=== PATIENT | male | born 1945 | race Two or more races ===

== ENCOUNTER 2020-07-27 18:53 | Emergency (ER) | payer BC, OTHER ==
[~2020-07-27] VITALS: Ht 182.9 cm; Wt 63.5 kg
[2020-07-27 20:58] LABS: Basophils # (auto) 0 10 ^3/uL (0-0.2); Basophils % (auto) 0.3 % (0.0-2.0); Eosinophils # (auto) 0.2 10 ^3/uL (0-0.8); Eosinophils % (auto) 2.3 % (0.0-7.0); Hematocrit 36.8 % (41.0-53.0); Hemoglobin 12.7 g/dL (13.5-17.5); Lymphocytes % (auto) 27.8 % (10.0-50.0); Mean Corpuscular Hemoglobin 31.5 pg (28.0-32.0); Mean Corpuscular Hgb Conc. 34.6 g/dL (32.0-36.0); Mean Corpuscular Volume 91.2 fL (80.0-100.0); Monocytes # (auto) 0.6 10 ^3/uL (0-1.3); Monocytes % (auto) 8.7 % (0.0-12.0); Neutrophils # (auto) 4.4 10 ^3/uL (1.6-8.6); Neutrophils % (auto) 60.9 % (37.0-80.0); Nucleated Red Blood Cells % 0.1 %; Platelet Count (auto) 199 10^3/uL (140-450); Red Blood Cells 4.03 10^6/uL (4.5-5.90); Red Cell Distribution Width 12.8 % (11.8-14.3); White Blood Cell 7.3 10^3/uL (4.4-10.8)
[2020-07-27 21:05] LABS: Urine Bacteria NONE SEEN /hpf (None Seen); Urine Blood 2+ /uL (Negative); Urine Specific Gravity 1.005 (1.001-1.035); Urine WBC <1 /hpf (0 - 3)
[2020-07-27 21:11] LABS: Alanine Aminotransferase 15 U/L (16-61); Albumin 3.6 g/dL (3.4-5.0); Anion Gap 6 (5-15); Blood Urea Nitrogen 10 mg/dL (7-18); Calcium 8.4 mg/dL (8.5-10.1); Carbon Dioxide 28 mmol/L (21-32); Chloride 109 mmol/L (98-107); Glucose 120 mg/dL (74-106); Potassium 3.5 mmol/L (3.5-5.1); Sodium 143 mmol/L (136-145)
[2020-07-27 21:16] LABS: Alkaline Phosphatase 70 U/L (45-117); Aspartate Aminotransferase 16 U/L (15-37); BUN/Creatinine Ratio 12.3; Bilirubin, Total 0.5 mg/dL (0.2-1.0); GFR African American 119 mL/min; GFR Non-African American 99 mL/min
[2020-07-27 22:00] VITALS: BP 127/74
== END 2020-07-27 23:38 | disposition home or self-care (01) ==
LOC: ER 18:57
DX: N40.0 Benign prostatic hyperplasia without lower urinary tract symptoms (principal); K59.00 Constipation, unspecified; J44.9 Chronic obstructive pulmonary disease, unspecified
CPT/HCPCS: 36415; 74176; 80053; 81001; 84484; 85025; 93005

== ENCOUNTER 2022-06-16 14:51 | Emergency (ER) | payer OTHER ==
[~2022-06-16] VITALS: Ht 177.8 cm; Wt 90.9 kg
[2022-06-16 16:28] LABS: Basophils # (auto) 0 10 ^3/uL (0-0.2); Basophils % (auto) 0.1 % (0.0-2.0); Eosinophils # (auto) 0 10 ^3/uL (0-0.8); Hematocrit 40.9 % (41.0-53.0); Lymphocytes # (auto) 0.4 10 ^3/uL (0.4-5.4); Lymphocytes % (auto) 4.8 % (10.0-50.0); Mean Corpuscular Hemoglobin 30.4 pg (28.0-32.0); Mean Corpuscular Hgb Conc. 34.2 g/dL (32.0-36.0); Monocytes # (auto) 0.9 10 ^3/uL (0-1.3); Monocytes % (auto) 10.6 % (0.0-12.0); Neutrophils % (auto) 84.5 % (37.0-80.0); Nucleated Red Blood Cells % 0.1 %; Red Blood Cells 4.59 10^6/uL (4.5-5.90); Red Cell Distribution Width 13.2 % (11.8-14.3); White Blood Cell 8.2 10^3/uL (4.4-10.8)
[2022-06-16 16:44] LABS: Urine Bacteria MANY /hpf (None Seen); Urine Blood 1+ /uL (Negative); Urine Mucus MANY (None Seen); Urine Specific Gravity 1.016 (1.001-1.035); Urine WBC 27 /hpf (0 - 3)
[2022-06-16 16:47] LABS: BUN/Creatinine Ratio 34.2; Calcium 9.2 mg/dL (8.5-10.1); Potassium 3.8 mmol/L (3.5-5.1)
[2022-06-16 16:50] LABS: Bilirubin, Total 1.3 mg/dL (0.2-1.0); Total Protein 7.2 g/dL (6.4-8.2)
[2022-06-16] MEDS ORDERED: cefTRIAXone 1GM/50ML D5W 50 ML IV ONE (17:00)
[2022-06-16] MEDS ORDERED: IPRATROPIUM BROM 0.5 MG/2.5ML INH SOL NEB ONE (17:45)
[2022-06-16] MEDS ORDERED: ALBUTEROL SULF 2.5 MG/0.5ML(0.5%) NEB SOLN NEB ONE (17:45)
[2022-06-16] MEDS ORDERED: SODIUM CHLORIDE 0.9% 500 ML IV ONE (17:45)
[2022-06-16] MEDS ORDERED: ALBUTEROL MEDNEB 2.5 mg/3ml NEB ONE (18:06)
[2022-06-17] MEDS ORDERED: levoFLOXacin 500 MG TAB PO ONE (07:15)
[2022-06-17 08:58] VITALS: BP 123/74
== END 2022-06-17 09:32 | disposition home or self-care (01) ==
LOC: ER 14:51 → EDBD 14:51 → ER 06-17 05:43
DX: N39.0 Urinary tract infection, site not specified (principal); R33.9 Retention of urine, unspecified; K76.89 Other specified diseases of liver; J44.9 Chronic obstructive pulmonary disease, unspecified; E78.5 Hyperlipidemia, unspecified; Z20.822 Contact with and (suspected) exposure to COVID-19
CPT/HCPCS: 36415; 51798; 71045; 71250; 74176; 80053; 81001; 83605; 85025; 87086; 87426; 94640; 96361; 96365; 99285; J0696; J7030; J7040; J7644; 87088; 87186

== ENCOUNTER 2024-03-14 05:52 | Inpatient (IN) | payer OTHER ==
[~2024-03-14] VITALS: Ht 182.9 cm; Wt 64.7 kg
--- NOTE | 2024-03-14 06:11 | ECG ---
[facility] Test Date: 2024-03-14 Test Time: 05:57:37 Pat Name: EDMUND IRENE Department: ED Room: 0286T Gender: M Sld Inclusion Teacher: JEFFERY : 1945 Requested By: EMERGENCY EMERGENCY Order Number: [id number] Reading MD: Harvinder Lerner Measurements Intervals [place] Rate: 87 P: 91 HI: 165 QRS: 58 QRSD: 123 T: 85 QT: 402 QTc: 484 Interpretive Statements Sinus rhythm Ventricular premature complex Nonspecific intraventricular conduction delay Anteroseptal infarct, old Electronically Signed On 03-16-2024 11:52:49 PST by Harvinder Lerner Please click the below link to view image of tracing.
--- NOTE | 2024-03-14 07:41 | DVH ---
CLINICAL INFORMATION: 78 years old, Male; shortness of breath. TECHNIQUE: Single AP portable chest radiograph was obtained. COMPARISON: CHEST PORTABLE on DOS: 06/16/22, CXRP on DOS: 06/16/22 FINDINGS: Lungs: Hazy opacities in the upper lobes bilaterally, right greater than left, similar in appearance compared to the prior radiographs. Emphysematous changes also appear similar to the prior exam. Cardiac: Heart size is within normal limits. Pulmonary vasculature: Unremarkable. Mediastinum/mignon: Unremarkable. Bones: No acute osseous abnormality identified. Other: No other significant findings. IMPRESSION: Hazy opacities in the upper lobes bilaterally, right greater than left, appear similar to the prior r adiographs from 06/16/2022, may be due to chronic interstitial lung disease. Similar-appearing emphys ematous changes also noted. No focal consolidation.
--- NOTE | 2024-03-14 07:55 | ED.PDOC ---
History of Present Illness HPI Comments 78 y/o M, with a Hx of COPD, dementia, HLD, BPH, and Jean catheter placement, presents with c/o shortness of breath, today. Per EMS report, bystanders called for well-fare check after hearing patient yelling from inside his home, this morning. Patient was found with a SpO2 of 88% on room air, with his home O2 NC found beside him on the floor. En route, patient was placed on NRB, with SpO2 improving to 100%. Patient is also commented to be removed from hospice, recently, and is DNR. Patient has no other reported associated symptoms at this time. Further Hx cannot be obtained at this time, due to absence of family/fire behavior analyst historians and patient's demented baseline state. Chief Complaint: Shortness of Breath Time Seen by MD: 06:50 Reviewed Notes: Nurses Notes, Manager Of Employee Relations Notes, Medications, Allergies Allergies: Coded Allergies: No Known Drug Allergy (Verified Allergy, Unknown, 07/27/20) Information Source: Emergency Med Personnel Mode of Arrival: EMS Severity: Moderate Past Medical History PAST MEDICAL HISTORY: COPD, Dementia, High Lipids Past Medical History (Other): BPH Surgical History (Other): Jean catheter Family History Family History: Unknown Social History Smoker: Non-Smoker Alcohol: Denies ETOH Use Drugs: Denies Drug Use Lives In: Home Constitutional: denies: chills, diaphoresis, fatigue, fever, malaise, sweats, weakness, others EENTM: denies: blurred vision, double vision, ear bleeding, ear discharge, ear drainage, ear pain, ear ringing, eye pain, eye redness, hearing loss, mouth pain, mouth swelling, nasal discharge, nose bleeding, nose congestion, nose pain, photophobia, tearing, throat pain, throat swelling, voice changes, others Respiratory: reports: shortness of breath; denies: cough, hemoptysis, orthopnea, SOB at rest, SOB with excertion, stridor, wheezing, others Cardiovascular: denies: chest pain, dizzy spells, diaphoresis, Dyspnea on exertion, edema, irregular heart beat, left arm pain, lightheadedness, palpitations, PND, syncope, others Gastrointestinal: denies: abdomen distended, abdominal pain, blood streaked bowels, constipated, diarrhea, dysphagia, difficulty swallowing, hematemesis, melena, nausea, poor appetite, poor fluid intake, rectal bleeding, rectal pain, vomiting, others Genitourinary: denies: burning, dysuria, flank pain, frequency, hematuria, incontinence, penile discharge, penile sore, pain, testicle pain, testicle swelling, urgency, others Neurological: denies: dizziness, fainting, headache, left sided numbness, left sided weakness, numbness, paresthesia, pre-existing deficit, right sided num bness, right sided weakness, seizure, speech problems, tingling, tremors, weakness, others Musculoskeletal: denies: back pain, gout, joint pain, joint swelling, muscle pain, muscle stiffness, neck pain, others Integumetry: denies: bruises, change in color, change in hair/nails, dryness, laceration, lesions, lumps, rash, wounds, others Allergic/Immunocompromised: denies: Difficulty Healing, Frequent Infections, Hives, Itching, others Hematologic/Lymphatic: denies: anemia, blood clots, easy bleeding, easy bruising, swollen glands, others Endocrine: denies: excessive hunger, excessive sweating, excessive thirst, excessive urination, flushing, intolerance to cold, intolerance to heat, unexplained weight gain, unexplained weight loss, others Psychiatric: denies: anxiety, bipolar disorder, depression, hopeless, panic disorder, schizophrenia, sleepless, suicidal, others All Other Systems: Reviewed and Negative Physical Exam General Appearance: Moderate Distress HEENT: Normal ENT Inspection, Pharynx Normal, TMs Normal Neck: Full Range of Motion, Non-Tender, Normal, Normal Inspection Respiratory: Other (Coarse breath sounds) Cardiovascular: No Edema, No JVD, No Murmur, No Gallop, Normal Peripheral Pulses, Regular Rate/Rhythm Breast Exam: Deferred Gastrointestinal: No Organomegaly, Non Tender, No Pulsatile Mass, Normal Bowel Sounds, Soft Genitalia: Deferred Pelvic: Deferred Rectal: Deferred Extremities: No calf tenderness, Normal capillary refill, Normal inspection, Normal range of motion, Non-tender, No pedal edema Musculoskeletal : Apperance: Normal Neurologic: Disoriented Cerebellar Function: NOT DONE Reflexes: NOT DONE Skin: Dry, Normal Color, Warm Peripheral Pulses: 3+ Radial (R), 3+ Radial (L) Lymphatic: No Adenopathy Was a procedure done? Was a procedure done?: No EKG EKG : Pulse Rate (adult): 87 [place]: Normal Cardiac Rhythm: NSR, PVC's Block: None Hypertrophy: None ST: Old, Ant, Infarct Differential Dx Considerations may include: COPD exacerbation, bronchitis, PNA, Covid19, URI, viral syndrome X-Ray, Labs, Meds, VS Vital Signs Date Time Temp Pulse Resp B/P (MAP) Pulse Ox O2 Delivery O2 Flow Rate FiO2 03/14/24 07:55 87 03/14/24 06:20 Nasal Cannula* 2 28 03/14/24 06:20 98.0 74 12 144/64 (90) 98.0 03/14/24 06:04 98.7 82 24 131/83 (99) 100 03/14/24 05:57 87 Lab Test 03/14/24 07:13 Range/Units White Blood Count Pending Red Blood Count Pending Hemoglobin Pending Hematocrit Pending Mean Corpuscular Volume Pending Mean Corpuscular Hemoglobin Pending Mean Corpuscular Hemoglobin Concent Pending Red Cell Distribution Width Pending Platelet Count Pending Mean Platelet Volume Pending Neutrophils (%) (Auto) Pending Lymphocytes (%) (Auto) Pending Monocytes (%) (Auto) Pending Basophils (%) (Auto) Pending Neutrophils # (Auto) Pending Lymphocytes # (Auto) Pending Monocytes # (Auto) Pending Sodium Level Pending Potassium Level Pending Chloride Level Pending Carbon Dioxide Level Pending Anion Gap Pending Blood Urea Nitrogen Pending Creatinine Pending Glomerular Filtration Rate Calc Pending BUN/Creatinine Ratio Pending Serum Glucose Pending Calcium Level Pending History of dementia. Possibly baseline. Saturation was low in the field. Placed on oxygen. Reviewed his previous visit. Waiting for family. Better after placed on oxygen Continue cardiac monitoring. Time of 1ST Reevaluation: 07:20 Reevaluation 1ST: Unchanged Patient Education/Counseling: Other (patient has dementia ) Family Education/Counseling: No Family Present Departure 1 Departure Time of Disposition: 08:10 Impression: Primary Impression: Acute respiratory failure Qualified Codes: J96.01 - Acute respiratory failure with hypoxia Additional Impression: Metabolic encephalopathy Disposition: ADMITTED INPATIENT Admit to: Med Surg Condition: Guarded Critical Care Note Critical Care Time?: Yes (45 min-critical care time only) Stability Stability form required: No Heart Score Heart Score: Heart Score Response (Comments) Value History N/A 0 EKG N/A 0 Age N/A 0 Risk Factors N/A 0 Troponin N/A 0 Total 0 I personally scribed for AMANDA EGAN MD ([email or web address]) on 03/14/24 at 07:55. Electronically submitted by Andrea Barnhart ([email or web address]). AMANDA EGAN MD Mar 14, 2024 07:55
[2024-03-14 07:57] LABS: Basophils # (auto) 0 10 ^3/uL (0-0.2); Basophils % (auto) 0.4 % (0.0-2.0); Eosinophils # (auto) 0.1 10 ^3/uL (0-0.8); Eosinophils % (auto) 1.2 % (0.0-7.0); Hematocrit 35.8 % (41.0-53.0); Hemoglobin 11.9 g/dL (13.5-17.5); Lymphocytes % (auto) 18.2 % (10.0-50.0); Mean Corpuscular Hemoglobin 30.7 pg (28.0-32.0); Mean Corpuscular Hgb Conc. 33.3 g/dL (32.0-36.0); Mean Corpuscular Volume 92.4 fL (80.0-100.0); Monocytes # (auto) 0.5 10 ^3/uL (0-1.3); Monocytes % (auto) 9.7 % (0.0-12.0); Neutrophils # (auto) 3.9 10 ^3/uL (1.6-8.6); Neutrophils % (auto) 70.5 % (37.0-80.0); Nucleated Red Blood Cells % 0.1 %; Platelet Count (auto) 150 10^3/uL (140-450); Red Blood Cells 3.88 10^6/uL (4.5-5.90); Red Cell Distribution Width 13.5 % (11.8-14.3); White Blood Cell 5.6 10^3/uL (4.4-10.8)
[2024-03-14 08:00] VITALS: PULSE 76; RESP 23; O2SAT 99
[2024-03-14 08:11] LABS: Chloride 108 mmol/L (98-107); Potassium 3.8 mmol/L (3.5-5.1); Sodium 142 mmol/L (136-145)
[2024-03-14 08:13] LABS: Anion Gap 5 (5-15); Carbon Dioxide 29 mmol/L (20-31)
[2024-03-14 08:14] LABS: Calcium 9.1 mg/dL (8.7-10.4)
[2024-03-14 08:19] LABS: Blood Urea Nitrogen 15 mg/dL (9-23); Glucose 93 mg/dL (74-106)
[2024-03-14] MEDS ORDERED: DOCUSATE SOD 100 MG CAP PO PRN (09:45)
[2024-03-14] MEDS ORDERED: ONDANSETRON HCL 4 MG/2 ML VIAL IV PRN (09:45)
[2024-03-14] MEDS ORDERED: NITROGLYCERIN 0.4 MG SL TAB SL PRN (10:30)
--- NOTE | 2024-03-14 10:33 | DVHHP2 ---
History of Present Illness Reason for Visit: Acute respiratory failure History of Present Illness The patient is a 78-year-old male past medical history of dementia, COPD, BPH, and hyperlipidemia who presented to [facility] ED with complaint of shortness of breaths. As reported patient was yelling from inside his home this morning due difficulty breathing, found with SpO2 88% room room air, his home O2 nasal cannula side him on the floor. Patient was placed non-rebreather with SpO2 improving to 100% en route to our facility ED. Patient reports to be removed from hospice recently and is DNR. Patient was seen and evaluated in the ED, laboratory data shows WBC 5.6, platelets 150, sodium 142, potassium 3.8, BUN 15, creatinine 1.07, glucose 93, blood pressure 140/52, heart rate 83, temperature 98.0 F, O2 saturation 97% on oxygen. Chest x-ray revealing hazy opacities in the upper lobes bilaterally, right greater than left, appears similar to the prior radiograph from June 16, 2022, may be due to chronic interstitial lung disease, similar appearing emphysematous changes also noted, no focal consolidation. Please see medication orders section in the computer. On my assessment, patient denies chest pain, no headache, no dizziness, no diaphoresis, no nausea, no vomiting, no fever, no chills. Patient was admitted for evaluation and medical management. Past Medical History COPD, Dementia, High Lipids, BPH Past Surgical History Jean catheter placement Family History Reviewed, noncontributory to the management of this case. Past Social History The patient lives at home, denies smoking, alcohol or illicit drugs abuse. Review of Systems Constitutional: Yes: Weakness; No: Fever, Chills, Sweats, Malaise, Other Eyes: No: Pain, Vision change, Conjunctivae inflammation, Eyelid inflammation, Other, Redness ENT: No: Ear pain, Ear discharge, Nose pain, Nose discharge, Nose congestion, Mouth pain, Mouth swelling, Throat pain, Throat swelling, Other Respiratory: Shortness of breath, SOB with excertion, Other (SOB at rest); No: Cough, Dry, Wheezing, Hemoptysis, Pleuritic Pain, Sputum, Wheezing Cardiovascular: No: Chest Pain, Palpitations, Orthopnea, Paroxysmal Noc. Dyspnea, Edema, Lt Headedness, Other Gastrointestinal: No: Nausea, Vomiting, Abdominal Pain, Diarrhea, Constipation, Melena, Hematochezia, Other Genitourinary: No Dysuria, No Frequency, No Incontinence, No Hematuria, No Retention, No Other Musculoskeletal: No: other, neck pain, shoulder pain, arm pain, back pain, hand pain, leg pain, foot pain Skin: No: Rash, Lesions, Jaundice, Bruising, Other Neurological: No: Weakness, Numbness, Incoordination, Change in speech, Confusion, Seizures, Other Allergies: Coded Allergies: No Known Drug Allergy (Verified Allergy, Unknown, 07/27/20) Medications Current Medications Medications Dose Ordered Sig/Anshu Route Start Time Stop Time Status Last Admin Dose Admin Tamsulosin HCl 0.4 mg QPM PO 03/14/24 18:00 UNV Memantine 10 mg DAILY PO 03/14/24 10:00 UNV Atorvastatin Calcium 10 mg HS PO 03/14/24 22:00 UNV Albuterol 2.5 mg Q4HPRN PRN NEB 03/14/24 09:45 UNV Sodium Chloride 10 ml Q8HR IV 03/14/24 14:00 UNV Acetaminophen/ Hydrocodone Bitart 1 tab Q4HP PRN PO 03/14/24 09:45 UNV Ondansetron HCl 4 mg Q4HP PRN IV 03/14/24 09:45 UNV Docusate Sodium 100 mg BIDPRN PRN PO 03/14/24 09:45 UNV Acetaminophen 500 mg Q6HP PRN PO 03/14/24 09:45 UNV Exam Vital Signs Vital Signs Date Time Temp Pulse Resp B/P (MAP) Pulse Ox O2 Delivery O2 Flow Rate FiO2 03/14/24 10:00 74 18 122/77 (92) 97 03/14/24 08:00 Nasal Cannula* 2 28 03/14/24 06:20 98.0 98.0 General Appearance: Alert, Oriented X3, Cooperative, No acute distress HEENT: Atraumatic, PERRLA, EOMI, Mucous membr. moist/pink Respiratory: Normal air movement, Other (Diminished breath sounds) Cardiovascular: Regular rate, Normal S1, Normal S2, No murmurs Abdominal: Normal bowel sounds, Soft, No tenderness, No hepatospenomegaly, No masses Extremities: No clubbing, No cyanosis, No edema, Normal pulses, No tenderness/swelling Skin: No rashes, No breakdown, No significant lesion Neuro: Normal speech, Normal tone, Sensation intact, Cranial nerves 3-12 NL, Reflexes 2+, Other (Generalized weakness) Psych/Mental Status: Mental status NL, Mood NL Labs/Xrays Labs Test 03/14/24 07:13 Range/Units White Blood Count 5.6 4.4-10.8 10^3/uL Red Blood Count 3.88 L 4.5-5.90 10^6/uL Hemoglobin 11.9 L 13.5-17.5 g/dL Hematocrit 35.8 L 41.0-53.0 % Mean Corpuscular Volume 92.4 80.0-100.0 fL Mean Corpuscular Hemoglobin 30.7 28.0-32.0 pg Mean Corpuscular Hemoglobin Concent 33.3 32.0-36.0 g/dL Red Cell Distribution Width 13.5 11.8-14.3 % Platelet Count 150 140-450 10^3/uL Mean Platelet Volume 9.4 6.9-10.8 fL Neutrophils (%) (Auto) 70.5 37.0-80.0 % Lymphocytes (%) (Auto) 18.2 10.0-50.0 % Monocytes (%) (Auto) 9.7 0.0-12.0 % Eosinophils (%) (Auto) 1.2 0.0-7.0 % Basophils (%) (Auto) 0.4 0.0-2.0 % Neutrophils # (Auto) 3.9 1.6-8.6 10 ^3/uL Lymphocytes # (Auto) 1.0 0.4-5.4 10 ^3/uL Monocytes # (Auto) 0.5 0-1.3 10 ^3/uL Eosinophils # (Auto) 0.1 0-0.8 10 ^3/uL Basophils # (Auto) 0 0-0.2 10 ^3/uL Nucleated Red Blood Cells 0.1 % Sodium Level 142 136-145 mmol/L Potassium Level 3.8 3.5-5.1 mmol/L Chloride Level 108 H 98-107 mmol/L Carbon Dioxide Level 29 20-31 mmol/L Anion Gap 5 5-15 Blood Urea Nitrogen 15 9-23 mg/dL Creatinine 1.07 0.700-1.30 mg/dL Glomerular Filtration Rate Calc 71 >90 mL/min BUN/Creatinine Ratio 14.0 10.0-20.0 Serum Glucose 93 74-106 mg/dL Calcium Level 9.1 8.7-10.4 mg/dL PATIENT: EDMUND IRENET: [id number] UNIT: [id number] : 1945 LOC: ER ROOM / BED: / AGE / SEX: 78 / M ADM STATUS: REG ER SERVICE [id number] ORDERING PHYSICIAN: AMANDA EGAN MD PROCEDURE(s): CXRP - CHEST PORTABLE REASON: sob ORDER NUMBER(s): [id number], ACCESSION NUMBER(s): [id number] CLINICAL INFORMATION: 78 years old, Male; shortness of breath. TECHNIQUE: Single AP portable chest radiograph was obtained. COMPARISON: CHEST PORTABLE on DOS: 06/16/22, CXRP on DOS: 06/16/22 FINDINGS: Lungs: Hazy opacities in the upper lobes bilaterally, right greater than left, similar in appearance compared to the prior radiographs. Emphysematous changes also appear similar to the prior exam. Cardiac: Heart size is within normal limits. Pulmonary vasculature: Unremarkable. Mediastinum/mignon: Unremarkable. Bones: No acute osseous abnormality identified. Other: No other significant findings. IMPRESSION: Hazy opacities in the upper lobes bilaterally, right greater than left, appear similar to the prior radiographs from 06/16/2022, may be due to chronic interstitial lung disease. Similar-appearing emphysematous changes also noted. No focal consolidation. Assessment/Plan Assessment/Plan Acute respiratory failure Metabolic encephalopathy Generalized weakness Acute respiratory failure with hypoxia Plan 1. Admit to telemetry unit 2. Breathing treatment 3. Pain control management 4. Management of fluids and electrolytes 5. Consultation for pulmonology 6. Diagnostic tests chest x-ray 7. DVT prophylaxis-on aspirin 8. Repeat labs CBC, CMP in a.m. 9. Continue with current medical management 10. Treatment plan discussed with patient and RN. Patient verbalized understanding. Plan discussed with: Patient, Other (RN) My Orders Orders - PADMINI RANDOLPH DNP Procedure Category Date Status Time Tamsulosin PHA 03/14/24 Logged Hydrochloride (Flomax) 18:00 Memantine Tablet PHA 03/14/24 Logged (Namenda Tablet) 10:00 Atorvastatin (Lipitor) PHA 03/14/24 Logged 22:00 Albuterol Medneb PHA 03/14/24 Logged (Ventolin Medneb) 09:45 Allergies KAYLA 03/14/24 In Process 09:36 Code Status CODE 03/14/24 Transmitted 09:36 Sodium Chloride Lock PHA 03/14/24 Logged (Saline Lock Ns) 14:00 Oxygen Per Hour RT 03/14/24 Transmitted 09:36 Hydrocodone-Acet PHA 03/14/24 Logged 5/325mg Tab ([place] 09:45 Ondansetron Hcl PHA 03/14/24 Logged (Zofran) 09:45 Docusate Sodium PHA 03/14/24 Logged Capsule (Colace 09:45 Fall Risk Precautions KAYLA 03/14/[address] 09:36 Complete Blood Count LAB 03/15/24 Verified 04:00 Comprehensive LAB 03/15/24 Verified Metabolic Panel 04:00 Cardiac DIET 03/14/24 Transmitted Diet-2gna,Lofat,Lochol Lunch Condition: Serious KAYLA 03/14/24 In Process 09:36 Acetaminophen Tablet PHA 03/14/24 Logged (Tylenol Tablet) 09:45 Sequential KAYLA 03/14/24 In Process Compression Device Problem List: (1) Acute respiratory failure (2) Generalized weakness (3) Metabolic encephalopathy (4) Acute respiratory failure with hypoxia Date of Service: Mar 14, 2024 Billing Provider: PADMINI RANDOLPH DNP Common Visit Codes: [id number] INP/OBS CARE (HIGH) PADMINI RANDOLPH DNP Mar 14, 2024 10:33
[2024-03-14 10:44] VITALS: PULSE 73; RESP 17; O2SAT 98
[2024-03-14] MEDS ORDERED: ACETAMINOPHEN 500 MG TAB PO PRN (11:00)
[2024-03-14] MEDS: MEMANTINE HCL 5 MG TAB PO SCH (11:11)
[2024-03-14] MEDS: methylPREDNISolone SOD SUCC 125 MG/2 ML VL IM ONE (11:14)
[2024-03-14 11:42] LABS: Base Excess 1.3 mmol/L (-2.0-3.0)
[2024-03-14] MEDS: IPRATROPIUM BROM 0.5 MG/2.5ML INH SOL NEB PRN (12:30)
[2024-03-14] MEDS: ALBUTEROL SULF 2.5 MG/0.5ML(0.5%) NEB SOLN NEB PRN (12:30)
[2024-03-14] MEDS: SODIUM CHLOR 0.9% PF (SALINE LOCK) 10ML VIAL/SYR IV SCH (14:05)
[2024-03-14] MEDS: methylPREDNISolone SOD SUCC 40 MG/ML VL IV SCH (14:12)
[2024-03-14] MEDS: TAMSULOSIN HYDROCHLORIDE 0.4 MG CAP PO SCH (17:48)
[2024-03-14 18:15] VITALS: O2SAT 98
[2024-03-14 19:29] VITALS: PULSE 77; RESP 27; O2SAT 96
[2024-03-14] MEDS: HYDROcodone-ACET 5/325MG TAB PO PRN (19:37)
--- NOTE | 2024-03-14 20:16 | DVHINCON2 ---
Date of service: Mar 14, 2024 Referring Physician JAE Peoples Reason for Consultation Acute hypoxic respiratory failure History of Present Illness 78-year-old man history of dementia, COPD, BPH, hyperlipidemia who presented to the ED with shortness of breath. Patient was yelling from inside his home due to difficulty breathing. He was found to be hypoxic with a pulse oximetry reading of 80% on room air. He has been disconnected from his home O2. He was initiated on non-rebreather. Improvement in O2 saturation 100% when traveling by EMS. He was recently removed from hospice and was DNR. In the emergency department he was found to be having hazy opacities in the upper lobes bilaterally. [id number]. He was also noted to have emphysematous changes and interstitial opacities. Pulmonary consultation is called due to acute hypoxic respiratory failure. Review of systems: 14 point review of systems is negative unless otherwise noted above. Past medical history: COPD, dementia, hyperlipidemia, BPH Past surgical history: Jean catheter placement Medications: Reviewed Allergies: No known drug allergies. Family history: No family history of premature CAD. No family history of lung disease Social history: Nonsmoker. No alcohol or illicit drug use. Allergies: Coded Allergies: No Known Drug Allergy (Verified Allergy, Unknown, 07/27/20) Current Medications Current Medications Medications (Trade) Dose Ordered Sig/Anshu Route PRN Reason Start Time Stop Time Status Last Admin Tamsulosin HCl (Flomax) 0.4 mg QPM PO 03/14/24 18:00 03/14/24 17:48 Memantine (Namenda Tablet) 10 mg DAILY PO 03/14/24 10:00 03/14/24 11:11 Atorvastatin Calcium (Lipitor) 10 mg HS PO 03/14/24 22:00 Albuterol (Ventolin Medneb) 2.5 mg Q4HPRN PRN NEB SHORTNESS OF BREATH 03/14/24 09:45 03/14/24 12:30 Sodium Chloride (Saline Lock Ns) 10 ml Q8HR IV 03/14/24 14:00 03/14/24 14:05 Acetaminophen/ Hydrocodone Bitart ([place] 5/325MG Tab) 1 tab Q4HP PRN PO MODERATE PAIN (4-6 PAIN SCALE) 03/14/24 09:45 03/14/24 19:37 Ondansetron HCl (Zofran) 4 mg Q4HP PRN IV NAUSEA / VOMITING 03/14/24 09:45 Docusate Sodium (Colace Capsule) 100 mg BIDPRN PRN PO FOR CONSTIPATION 03/14/24 09:45 Acetaminophen (Tylenol Tablet) 500 mg Q6HP PRN PO PAIN SCALE 1-3 OR TEMP>100.4 03/14/24 11:00 Ipratropium [place] (Atrovent Medneb) 0.5 mg Q4HPRN PRN NEB SHORTNESS OF BREATH 03/14/24 10:30 03/14/24 12:30 Methylprednisolone Sodium Succinate (Solu Medrol) 40 mg Q8HR IV 03/14/24 14:00 03/14/24 14:12 Famotidine (Pepcid Injection) 20 mg Q12HR IV 03/14/24 22:00 Nitroglycerin (Ntrostat Sublingual) 0.4 mg Q5MINP PRN SL FOR CHEST PAIN 03/14/24 10:30 Morphine Sulfate 2 mg Q30M PRN IV FOR CHEST PAIN 03/14/24 10:30 Vital Signs Vital Signs Date Time Temp Pulse Resp B/P (MAP) Pulse Ox O2 Delivery O2 Flow Rate FiO2 03/14/24 18:15 98 Nasal Cannula 2.0 03/14/24 18:15 28 03/14/24 18:00 91 16 116/71 (86) 03/14/24 06:20 98.0 98.0 Physical Exam Gen.: Patient lying in bed in no apparent distress. On supplemental oxygen. Head: Normocephalic, atraumatic Eyes: EOMI/PERRLA. Ears: Normal hearing. Normal anatomy. Neck/trachea: Trachea midline, supple. Nose: Normal external anatomy. Mouth: Moist mucous membranes. Chest: Decreased air entry bilaterally. Bilateral wheezing. No rhonchi. Cardio vascular: Positive S1, positive S2. Regular rate and rhythm. Abdomen: Positive bowel sounds in all 4 quadrants. Soft, non-tender, non- distended. : Deferred. Rectal: Deferred Skin: Warm, dry. Extremities: 2+ radial pulses bilaterally. No lower extremity edema. Neuro: Awake, alert, oriented x1. No gross motor or sensory deficits. Cranial nerves II through XII intact. Gait not assessed. Labs/Diagnostic Data Labs Test 03/14/24 11:38 03/14/24 07:13 Range/Units Blood Gas Specimen Type Arterial Blood Gas Sample Site Right radial Blood Gas Patient Temperature 37.0 Arterial Blood Date Drawn [id number] Arterial Blood pH 7.436 7.350-7.450 Arterial Blood Partial Pressure CO2 38.7 35.0-48.0 mmHg Arterial Blood Partial Pressure O2 80.6 L 83.0-108.0 mmHg Arterial Blood HCO3 25.5 21.0-28.0 mmol/L Arterial Blood Oxygen Saturation 95.5 94.0-98.0 % Arterial Blood Base Excess 1.3 -2.0-3.0 mmol/L Arterial Blood Oxyhemoglobin 94.6 94.0-98.0 % Arterial Blood Carboxyhemoglobin 0.4 L 0.5-1.5 % Arterial Blood Methemoglobin 0.5 0.0-1.5 % Heraclio Test Yes Blood Gas Total Hemoglobin 12.60 L 13.5-17.5 g/dL Blood Gas Liter Flow 2.00 Blood Gas Modality Nasal cannula FiO2 % 28.0 White Blood Count 5.6 4.4-10.8 10^3/uL Red Blood Count 3.88 L 4.5-5.90 10^6/uL Hemoglobin 11.9 L 13.5-17.5 g/dL Hematocrit 35.8 L 41.0-53.0 % Mean Corpuscular Volume 92.4 80.0-100.0 fL Mean Corpuscular Hemoglobin 30.7 28.0-32.0 pg Mean Corpuscular Hemoglobin Concent 33.3 32.0-36.0 g/dL Red Cell Distribution Width 13.5 11.8-14.3 % Platelet Count 150 140-450 10^3/uL Mean Platelet Volume 9.4 6.9-10.8 fL Neutrophils (%) (Auto) 70.5 37.0-80.0 % Lymphocytes (%) (Auto) 18.2 10.0-50.0 % Monocytes (%) (Auto) 9.7 0.0-12.0 % Eosinophils (%) (Auto) 1.2 0.0-7.0 % Basophils (%) (Auto) 0.4 0.0-2.0 % Neutrophils # (Auto) 3.9 1.6-8.6 10 ^3/uL Lymphocytes # (Auto) 1.0 0.4-5.4 10 ^3/uL Monocytes # (Auto) 0.5 0-1.3 10 ^3/uL Eosinophils # (Auto) 0.1 0-0.8 10 ^3/uL Basophils # (Auto) 0 0-0.2 10 ^3/uL Nucleated Red Blood Cells 0.1 % Sodium Level 142 136-145 mmol/L Potassium Level 3.8 3.5-5.1 mmol/L Chloride Level 108 H 98-107 mmol/L Carbon Dioxide Level 29 20-31 mmol/L Anion Gap 5 5-15 Blood Urea Nitrogen 15 9-23 mg/dL Creatinine 1.07 0.700-1.30 mg/dL Glomerular Filtration Rate Calc 71 >90 mL/min BUN/Creatinine Ratio 14.0 10.0-20.0 Serum Glucose 93 74-106 mg/dL Calcium Level 9.1 8.7-10.4 mg/dL Assessment Impression: Acute hypoxic respiratory failure COPD exacerbation Emphysematous changes Chronic interstitial lung disease Metabolic encephalopathy Generalized weakness Atelectasis Plan: Obtain ABG stat. ABG compensated. CT chest from 06/2022 report and images reviewed. Severe centrilobular/paraseptal emphysematous changes. Left lower lobe atelectasis/scar ring. Supplemental oxygen On 2 LPM via NC Keep O2 saturation above 92%. Continue bronchodilators every 4 hours as needed IV steroids Start antibiotic course for AE COPD. GI prophylaxis-famotidine every 12 hours. Condition: Critical Prognosis: Poor given multiple comorbidities. Rest of plan per hospitalist and other consultants. Thank you JAE Peoples for allowing me to participate in this patient's care. Further recommendations will depend on patient's clinical course. Please do not hesitate to contact me if you have any questions or concerns. This medical document was created using an electronic medical record system with [employer] system. Although this document has been carefully reviewed, there may still be some phonetic and typographical errors. These areas are purely typographical due to imperfections of the software programs, and do not reflect any compromise in the patient's medical care. Plan discussed with: Other (RN, SIGN DESIGNER) LYNETTE LOUIS MD Mar 14, 2024 20:16
[2024-03-14] MEDS: cefTRIAXone 1GM/50ML D5W 50 ML IV ONE (20:48)
[2024-03-14] MEDS: DOXYCYCLINE 100MG/250ML 250 ML IV SCH (21:25)
[2024-03-14] MEDS: FAMOTIDINE (10MG/ML) 2ML VL IV SCH (21:43)
[2024-03-14] MEDS: ATORVASTATIN 20 MG TAB PO SCH (21:43)
[2024-03-15] VITALS (10 sets, daily range): BP systolic 138; BP diastolic 67; PULSE 65–130; RESP 16–26; TEMP 98.1; O2SAT 98–100
[2024-03-15] MEDS: LORazepam 2MG/ML-1ML VIAL IV ONE (04:29)
[2024-03-15 05:17] LABS: Basophils # (auto) 0 10 ^3/uL (0-0.2); Basophils % (auto) 0.1 % (0.0-2.0); Eosinophils # (auto) 0 10 ^3/uL (0-0.8); Hematocrit 39.3 % (41.0-53.0); Hemoglobin 13.4 g/dL (13.5-17.5); Lymphocytes # (auto) 0.6 10 ^3/uL (0.4-5.4); Mean Corpuscular Hemoglobin 31.3 pg (28.0-32.0); Mean Corpuscular Hgb Conc. 34.1 g/dL (32.0-36.0); Mean Corpuscular Volume 91.9 fL (80.0-100.0); Monocytes # (auto) 0.2 10 ^3/uL (0-1.3); Monocytes % (auto) 2.9 % (0.0-12.0); Neutrophils # (auto) 5.9 10 ^3/uL (1.6-8.6); Nucleated Red Blood Cells % 0.1 %; Platelet Count (auto) 187 10^3/uL (140-450); Red Blood Cells 4.27 10^6/uL (4.5-5.90); Red Cell Distribution Width 13.6 % (11.8-14.3); White Blood Cell 6.7 10^3/uL (4.4-10.8)
[2024-03-15 05:30] LABS: Alanine Aminotransferase 21 U/L (7-40); Albumin 4.3 g/dL (3.2-4.8); Alkaline Phosphatase 61 U/L (46-116); Anion Gap 9 (5-15); Aspartate Aminotransferase 34 U/L (13-40); BUN/Creatinine Ratio 19.6 (10.0-20.0); Bilirubin, Total 1.1 mg/dL (0.2-1.0); Blood Urea Nitrogen 19 mg/dL (9-23); Calcium 9.6 mg/dL (8.7-10.4); Carbon Dioxide 27 mmol/L (20-31); Chloride 104 mmol/L (98-107); Glucose 112 mg/dL (74-106); Potassium 3.7 mmol/L (3.5-5.1); Sodium 140 mmol/L (136-145); Total Protein 7.6 g/dL (5.7-8.2)
[2024-03-15] MEDS: cefTRIAXone 1GM/50ML D5W 50 ML IV SCH (08:37)
[2024-03-15] MEDS: HALOPERIDOL LACTATE 5 MG/ML INJ VIAL IM ONE ×2 (09:12→15:41)
[2024-03-15] MEDS ORDERED: PRED20TA2 PO (12:50)
[2024-03-15] MEDS ORDERED: AUG875T PO (12:51)
[2024-03-15] MEDS ORDERED: DOXY-286 PO (12:53)
[2024-03-15] MEDS ORDERED: TAMS-35 PO (12:53)
[2024-03-15] MEDS ORDERED: ATOR20TA50 PO (12:55)
[2024-03-15] MEDS ORDERED: IPRA0.00 IN (12:56)
[2024-03-15] MEDS: QUEtiapine FUMARATE 25 MG TAB PO SCH (13:01)
--- NOTE | 2024-03-15 14:44 | DVHDS2 ---
Discharge Summary Date of Admission Mar 14, 2024 at 10:32 Date of Discharge: Mar 15, 2024 Labs/Diagnostic Data: Laboratory Results Test 03/15/24 04:20 03/14/24 11:38 White Blood Count 6.7 10^3/uL (4.4-10.8) Red Blood Count 4.27 10^6/uL (4.5-5.90) Hemoglobin 13.4 g/dL (13.5-17.5) Hematocrit 39.3 % (41.0-53.0) Mean Corpuscular Volume 91.9 fL (80.0-100.0) Mean Corpuscular Hemoglobin 31.3 pg (28.0-32.0) Mean Corpuscular Hemoglobin Concent 34.1 g/dL (32.0-36.0) Red Cell Distribution Width 13.6 % (11.8-14.3) Platelet Count 187 10^3/uL (140-450) Mean Platelet Volume 9.8 fL (6.9-10.8) Neutrophils (%) (Auto) 88.0 % (37.0-80.0) Lymphocytes (%) (Auto) 9.0 % (10.0-50.0) Monocytes (%) (Auto) 2.9 % (0.0-12.0) Eosinophils (%) (Auto) 0.0 % (0.0-7.0) Basophils (%) (Auto) 0.1 % (0.0-2.0) Neutrophils # (Auto) 5.9 10 ^3/uL (1.6-8.6) Lymphocytes # (Auto) 0.6 10 ^3/uL (0.4-5.4) Monocytes # (Auto) 0.2 10 ^3/uL (0-1.3) Eosinophils # (Auto) 0 10 ^3/uL (0-0.8) Basophils # (Auto) 0 10 ^3/uL (0-0.2) Nucleated Red Blood Cells 0.1 % Sodium Level 140 mmol/L (136-145) Potassium Level 3.7 mmol/L (3.5-5.1) Chloride Level 104 mmol/L (98-107) Carbon Dioxide Level 27 mmol/L (20-31) Anion Gap 9 (5-15) Blood Urea Nitrogen 19 mg/dL (9-23) Creatinine 0.97 mg/dL (0.700-1.30) Glomerular Filtration Rate Calc 79 mL/min (>90) BUN/Creatinine Ratio 19.6 (10.0-20.0) Serum Glucose 112 mg/dL (74-106) Calcium Level 9.6 mg/dL (8.7-10.4) Total Bilirubin 1.1 mg/dL (0.2-1.0) Aspartate Amino Transferase (AST) 34 U/L (13-40) Alanine Aminotransferase (ALT) 21 U/L (7-40) Alkaline Phosphatase 61 U/L (46-116) Total Protein 7.6 g/dL (5.7-8.2) Albumin 4.3 g/dL (3.2-4.8) Blood Gas Specimen Type Arterial Blood Gas Sample Site Right radial Blood Gas Patient Temperature 37.0 Arterial Blood Date Drawn [id number] Arterial Blood pH 7.436 (7.350-7.450) Arterial Blood Partial Pressure CO2 38.7 mmHg (35.0-48.0) Arterial Blood Partial Pressure O2 80.6 mmHg (83.0-108.0) Arterial Blood HCO3 25.5 mmol/L (21.0-28.0) Arterial Blood Oxygen Saturation 95.5 % (94.0-98.0) Arterial Blood Base Excess 1.3 mmol/L (-2.0-3.0) Arterial Blood Oxyhemoglobin 94.6 % (94.0-98.0) Arterial Blood Carboxyhemoglobin 0.4 % (0.5-1.5) Arterial Blood Methemoglobin 0.5 % (0.0-1.5) Heraclio Test Yes Blood Gas Total Hemoglobin 12.60 g/dL (13.5-17.5) Blood Gas Liter Flow 2.00 Blood Gas Modality Nasal cannula FiO2 % 28.0 Other Laboratory Tests 03/15/24 04:20 Brief Hx & Hospital Course: Patient is a 78-year-old male with past medical history of dementia, COPD, BPH, hyperlipidemia who presented to [facility] with complaints of shortness of breath. At baseline, patient is noted to use about 2 L of oxygen via nasal cannula. Patient was brought in from home and was noted to be shouting which prompted the neighbors to call EMS. Patient was recently on hospice with [facility] but recently revoked it. In the ER, patient underwent chest x-ray which showed bilateral hazy opacities in the bilateral upper lobes. These findings were similar to prior radiograph 18 months prior and appeared consistent with chronic interstitial lung disease. Patient was started on Solu-Medrol, doxycycline, ceftriaxone and DuoNebs. Patient's respiratory status improved. His oxygen requirement remained at 2 L nasal cannula saturating above 98%. Patient was noted to have significant bouts of agitation requiring the assistance of a sitter. Patient was given haldol and seroquel with minimal improvement in agitation. Patient was started on depakote 1000mg IV and discharged on 500mg PO BID for agitation. Patient was discharged on Augmentin and doxycycline for pneumonia, prednisone duration for 5 days, and DuoNeb treatments. Patient was previously with [facility] who was consulted for re-evaluation. 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 Patient was counseled about treatment plan, medications, possible side effects, patientverbalized understanding. All questions were answered to the best of my ability. This discharge took greater then 30 minutes in planning, reviewing documentation, counseling the patient, and discussing with other team members." ASSESSMENT ASSESSMENT Assessment Pneumonia BHARATI SAVAGE DO Mar 15, 2024 14:44
[2024-03-15] MEDS: MORPHINE SULFATE INJ 2 MG/ml SYRG IV PRN (15:25)
[2024-03-15] MEDS: VALPROATE INJ 1,000 MG in SODIUM CHL 0.9% 100 ML IV ONE (16:40)
[2024-03-15] MEDS ORDERED: DIVA-91 PO (17:52)
--- NOTE | 2024-03-15 19:57 | DVHPN2 ---
Progress Note - Dictate Date Seen: Mar 15, 2024 Medical Necessity Reason Pt with a Central, PICC or Fol: Yes The following are medically ne: Khanna Catheter Reason for khanna catheter: Strict I&O Subjective Patient seen and examined at bedside. Remains on supplemental oxygen Overnight events reviewed. vital signs Vital Sign Date Time Temp Pulse Resp B/P (MAP) Pulse Ox O2 Delivery O2 Flow Rate FiO2 03/15/24 19:34 65 16 100 03/15/24 19:26 Nasal Cannula* 2 28 03/15/24 18:26 98.1 138/67 (90) 98.1 Total Intake and Output 03/14/24 03/14/24 03/15/24 15:00 23:00 07:00 Intake Total 225 ml 125 ml Balance 225 ml 125 ml medications Current Medications Medications Dose Ordered Sig/Anshu Route Start Time Stop Time Status Last Admin Dose Admin Tamsulosin HCl 0.4 mg QPM PO 03/14/24 18:00 03/15/24 17:53 0.4 MG Memantine 10 mg DAILY PO 03/14/24 10:00 03/15/24 10:24 10 MG Atorvastatin Calcium 10 mg HS PO 03/14/24 22:00 03/14/24 21:43 10 MG Albuterol 2.5 mg Q4HPRN PRN NEB 03/14/24 09:45 03/15/24 19:26 2.5 MG Sodium Chloride 10 ml Q8HR IV 03/14/24 14:00 03/15/24 14:19 10 ML Acetaminophen/ Hydrocodone Bitart 1 tab Q4HP PRN PO 03/14/24 09:45 03/15/24 03:43 1 TAB Ondansetron HCl 4 mg Q4HP PRN IV 03/14/24 09:45 Docusate Sodium 100 mg BIDPRN PRN PO 03/14/24 09:45 Acetaminophen 500 mg Q6HP PRN PO 03/14/24 11:00 Ipratropium [place] 0.5 mg Q4HPRN PRN NEB 03/14/24 10:30 03/15/24 19:26 0.5 MG Famotidine 20 mg Q12HR IV 03/14/24 22:00 03/14/24 21:43 20 MG Nitroglycerin 0.4 mg Q5MINP PRN SL 03/14/24 10:30 Morphine Sulfate 2 mg Q30M PRN IV 03/14/24 10:30 03/15/24 15:25 2 MG Ceftriaxone Sodium 50 ml @ 100 mls/hr DAILY@09 IV 03/15/24 09:00 03/19/24 08:59 03/15/24 08:37 100 MLS/HR Doxycycline Hyclate 250 ml @ 125 mls/hr Q12H IV 03/14/24 20:15 03/19/24 20:14 03/15/24 09:19 125 MLS/HR Methylprednisolone Sodium Succinate 40 mg BID IV 03/15/24 22:00 Quetiapine Fumarate 50 mg BID PO 03/15/24 12:45 03/15/24 13:01 50 MG objective Gen.: Patient lying in bed in no apparent distress. On supplemental oxygen. Head: Normocephalic, atraumatic. Eyes: EOMI/PERRLA. Ears: Normal hearing. Normal anatomy. Neck/trachea: Trachea midline, supple. Nose: Normal external anatomy. Mouth: Moist mucous membranes. Chest: Decreased air entry bilaterally. No wheezing or rhonchi. Cardiovascular: Positive S1, positive S2. Regular rate and rhythm. Abdomen: Positive bowel sounds in all 4 quadrants. Soft, non-tender, non- distended. : Deferred. Rectal: Deferred. Skin: Warm, dry. Intact. Extremities: 2+ radial pulses bilaterally. No lower extremity edema. Neuro: Awake, alert, oriented x3. No gross motor or sensory deficits. Cranial nerves II through XII intact. Gait not assessed. laboratory and microbiology Laboratory Tests 03/15/24 04:20 Test 03/15/24 04:20 Range/Units Serum Glucose 112 H 74-106 mg/dL Assessment/Plan Impression: Acute hypoxic respiratory failure COPD exacerbation Emphysematous changes Chronic interstitial lung disease Metabolic encephalopathy Generalized weakness Atelectasis Events: Remains on supplemental oxygen On 2 LPM via NC Taper O2 as tolerated Continue IV steroids - taper frequency to q.12 h. Wheezing is improved. Continue antibiotics Continue bronchodilators. Incentive spirometry HOB elevation Aspiration precautions. Labs and imaging reviewed Rest of plan as noted below. Plan: Obtain ABG stat. ABG compensated. CT chest from 06/2022 report and images reviewed. Severe centrilobular/paraseptal emphysematous changes. Left lower lobe atelectasis/scarring. Supplemental oxygen On 2 LPM via NC Keep O2 saturation above 92%. Continue bronchodilators every 4 hours as needed IV steroids Start antibiotic course for AE COPD. GI prophylaxis-famotidine every 12 hours. Prognosis: Guarded given multiple comorbidities. Rest of plan per hospitalist and other consultants. Thank you JAE Peoples for allowing me to participate in this patient's care. Further recommendations will depend on patient's clinical course. Please do not hesitate to contact me if you have any questions or concerns. This medical document was created using an electronic medical record system with [employer] dictation system. Although this document has been carefully reviewed, there may still be some phonetic and typographical errors. These areas are purely typographical due to imperfections of the software programs, and do not reflect any compromise in the patient's medical care. Plan discussed with: Patient, Other (YVONNE Coyle) LYNETTE LOUIS MD Mar 15, 2024 19:57
[2024-03-15] MEDS: methylPREDNISolone SOD SUCC 40 MG/ML VL IV SCH (22:18)
[2024-03-16] VITALS (10 sets, daily range): BP systolic 135–159; BP diastolic 51–90; PULSE 78–159; RESP 20–32; TEMP 98–98.7; O2SAT 92–100
--- NOTE | 2024-03-16 11:29 | ECG ---
[facility] Test Date: 2024-03-15 Test Time: 15:33:55 Pat Name: EDMUND IRENE Department: ER Room: [facility]6T B Gender: M Project Drilling Engineer: DR MAC: [id number] Requested By: AMANDA EGAN Order Number: [id number] Reading MD: Harvinder Lerner Measurements Intervals [place] Rate: 106 P: 71 HI: 184 QRS: 53 QRSD: 114 T: 96 QT: 360 QTc: 479 Interpretive Statements Sinus tachycardia Multiple ventricular premature complexes Right atrial enlargement Anterior infarct, old Repol abnrm suggests ischemia, lateral leads Electronically Signed On 03-16-2024 12:45:26 PST by Harvinder Lerner Please click the below link to view image of tracing.
[2024-03-16] MEDS ORDERED: hydrALAZINE HCL 20 MG/ML VL IV PRN (18:00)
--- NOTE | 2024-03-16 22:20 | DVHPN2 ---
Progress Note - Dictate Date Seen: Mar 16, 2024 Medical Necessity Reason Pt with a Central, PICC or Fol: Yes The following are medically ne: Khanna Catheter Reason for khanna catheter: Strict I&O Subjective Patient seen and examined at bedside. Remains on supplemental oxygen Overnight events reviewed. vital signs Vital Sign Date Time Temp Pulse Resp B/P (MAP) Pulse Ox O2 Delivery O2 Flow Rate FiO2 03/16/24 21:14 100 Nasal Cannula* 3 32 03/16/24 21:00 98.0 78 20 135/90 (105) 98.0 Total Intake and Output 03/15/24 03/15/24 03/16/24 15:00 23:00 07:00 Intake Total 300 ml 110 ml 100 ml Output Total 400 ml 1000 ml Balance -100 ml 110 ml -900 ml medications Current Medications Medications Dose Ordered Sig/Anshu Route Start Time Stop Time Status Last Admin Dose Admin Tamsulosin HCl 0.4 mg QPM PO 03/14/24 18:00 03/16/24 17:49 0.4 MG Memantine 10 mg DAILY PO 03/14/24 10:00 03/16/24 08:37 10 MG Atorvastatin Calcium 10 mg HS PO 03/14/24 22:00 03/16/24 21:19 10 MG Albuterol 2.5 mg Q4HPRN PRN NEB 03/14/24 09:45 03/16/24 08:46 2.5 MG Sodium Chloride 10 ml Q8HR IV 03/14/24 14:00 03/16/24 21:20 10 ML Acetaminophen/ Hydrocodone Bitart 1 tab Q4HP PRN PO 03/14/24 09:45 03/15/24 03:43 1 TAB Ondansetron HCl 4 mg Q4HP PRN IV 03/14/24 09:45 Docusate Sodium 100 mg BIDPRN PRN PO 03/14/24 09:45 Acetaminophen 500 mg Q6HP PRN PO 03/14/24 11:00 Ipratropium [place] 0.5 mg Q4HPRN PRN NEB 03/14/24 10:30 03/16/24 08:46 0.5 MG Famotidine 20 mg Q12HR IV 03/14/24 22:00 03/16/24 21:20 20 MG Nitroglycerin 0.4 mg Q5MINP PRN SL 03/14/24 10:30 Morphine Sulfate 2 mg Q30M PRN IV 03/14/24 10:30 03/15/24 15:25 2 MG Ceftriaxone Sodium 50 ml @ 100 mls/hr DAILY@09 IV 03/15/24 09:00 03/19/24 08:59 03/16/24 11:13 100 MLS/HR Doxycycline Hyclate 250 ml @ 125 mls/hr Q12H IV 03/14/24 20:15 03/19/24 20:14 03/16/24 20:04 125 MLS/HR Methylprednisolone Sodium Succinate 40 mg BID IV 03/15/24 22:00 03/16/24 21:19 40 MG Quetiapine Fumarate 50 mg BID PO 03/15/24 12:45 03/16/24 21:19 50 MG Hydralazine HCl 10 mg Q4HPRN PRN IV 03/16/24 18:00 objective Gen.: Patient lying in bed in no apparent distress. On supplemental oxygen. Head: Normocephalic, atraumatic. Eyes: EOMI/PERRLA. Ears: Normal hearing. Normal anatomy. Neck/trachea: Trachea midline, supple. Nose: Normal external anatomy. Mouth: Moist mucous membranes. Chest: Decreased air entry bilaterally. No wheezing or rhonchi. Cardiovascular: Positive S1, positive S2. Regular rate and rhythm. Abdomen: Positive bowel sounds in all 4 quadrants. Soft, non-tender, non- distended. : Deferred. Rectal: Deferred. Skin: Warm, dry. Intact. Extremities: 2+ radial pulses bilaterally. No lower extremity edema. Neuro: Awake, alert, oriented x3. No gross motor or sensory deficits. Cranial nerves II through XII intact. Gait not assessed. laboratory and microbiology Laboratory Tests 03/15/24 04:20 Test 03/15/24 04:20 Range/Units Serum Glucose 112 H 74-106 mg/dL Assessment/Plan Impression: Acute hypoxic respiratory failure COPD exacerbation Emphysematous changes Chronic interstitial lung disease Metabolic encephalopathy Generalized weakness Atelectasis Events: Remains on supplemental oxygen On 3 LPM via NC Taper O2 as tolerated Continue IV steroids - recommend continued taper. Lungs clear, wheezing resolved. Continue antibiotics Continue bronchodilators. Incentive spirometry HOB elevation Aspiration precautions. On 1:1 monitoring for safety. Labs and imaging reviewed Rest of plan as noted below. Plan: ABG compensated. CT chest from 06/2022 report and images reviewed. Severe centrilobular/paraseptal emphysematous changes. Left lower lobe atelectasis/scarring. Supplemental oxygen On 3 LPM via NC Keep O2 saturation above 92%. Continue bronchodilators every 4 hours as needed IV steroids Start antibiotic course for AE COPD. GI prophylaxis-famotidine every 12 hours. Prognosis: Guarded given multiple comorbidities. Rest of plan per hospitalist and other consultants. Thank you JAE Peoples for allowing me to participate in this patient's care. Further recommendations will depend on patient's clinical course. Please do not hesitate to contact me if you have any questions or concerns. This medical document was created using an electronic medical record system with [employer] computerized dictation system. Although this document has been carefully reviewed, there may still be some phonetic and typographical errors. These areas are purely typographical due to imperfections of the software programs, and do not reflect any compromise in the patient's medical care. Plan discussed with: Patient, Other (RN Summer) LYNETTE LOUIS MD Mar 16, 2024 22:20
[2024-03-17] VITALS (13 sets, daily range): BP systolic 122–154; BP diastolic 61–98; PULSE 63–123; RESP 16–30; TEMP 97.4–98.3; O2SAT 92–99
[2024-03-17 07:31] LABS: Basophils # (auto) 0.1 10 ^3/uL (0-0.2); Basophils % (auto) 0.5 % (0.0-2.0); Eosinophils # (auto) 0 10 ^3/uL (0-0.8); Eosinophils % (auto) 0.2 % (0.0-7.0); Hematocrit 39.8 % (41.0-53.0); Hemoglobin 13.2 g/dL (13.5-17.5); Lymphocytes # (auto) 0.5 10 ^3/uL (0.4-5.4); Mean Corpuscular Hemoglobin 30.1 pg (28.0-32.0); Mean Corpuscular Hgb Conc. 33.1 g/dL (32.0-36.0); Monocytes # (auto) 0.9 10 ^3/uL (0-1.3); Monocytes % (auto) 6.8 % (0.0-12.0); Neutrophils # (auto) 11.2 10 ^3/uL (1.6-8.6); Neutrophils % (auto) 88.5 % (37.0-80.0); Platelet Count (auto) 207 10^3/uL (140-450); Red Blood Cells 4.38 10^6/uL (4.5-5.90); Red Cell Distribution Width 13.4 % (11.8-14.3); White Blood Cell 12.7 10^3/uL (4.4-10.8)
[2024-03-17 07:42] LABS: Chloride 105 mmol/L (98-107); Potassium 4.1 mmol/L (3.5-5.1); Sodium 141 mmol/L (136-145)
[2024-03-17 07:44] LABS: Anion Gap 5 (5-15); Calcium 9.6 mg/dL (8.7-10.4); Carbon Dioxide 31 mmol/L (20-31)
[2024-03-17 07:49] LABS: BUN/Creatinine Ratio 23.9 (10.0-20.0); Blood Urea Nitrogen 22 mg/dL (9-23); Glucose 120 mg/dL (74-106)
[2024-03-17] MEDS: predniSONE 20 MG TAB PO SCH (11:37)
--- NOTE | 2024-03-17 20:30 | DVHPN2 ---
Progress Note - Dictate Date Seen: Mar 17, 2024 Medical Necessity Reason Pt with a Central, PICC or Fol: Yes The following are medically ne: Khanna Catheter Reason for khanna catheter: Strict I&O Subjective Patient seen and examined at bedside. Remains on supplemental oxygen Overnight events reviewed. vital signs Vital Sign Date Time Temp Pulse Resp B/P (MAP) Pulse Ox O2 Delivery O2 Flow Rate FiO2 03/17/24 16:34 97.4 80 18 129/69 (89) 96 97.4 03/17/24 15:14 Nasal Cannula 2.0 03/17/24 15:14 28 Total Intake and Output 03/16/24 03/16/24 03/17/24 15:00 23:00 07:00 Intake Total 300 ml 1050 ml 595 ml Output Total 1500 ml 2050 ml Balance 300 ml -450 ml -1455 ml medications Current Medications Medications Dose Ordered Sig/Anshu Route Start Time Stop Time Status Last Admin Dose Admin Tamsulosin HCl 0.4 mg QPM PO 03/14/24 18:00 03/17/24 18:03 0.4 MG Memantine 10 mg DAILY PO 03/14/24 10:00 03/17/24 08:50 10 MG Atorvastatin Calcium 10 mg HS PO 03/14/24 22:00 03/16/24 21:19 10 MG Albuterol 2.5 mg Q4HPRN PRN NEB 03/14/24 09:45 03/17/24 15:14 2.5 MG Sodium Chloride 10 ml Q8HR IV 03/14/24 14:00 03/17/24 14:00 10 ML Acetaminophen/ Hydrocodone Bitart 1 tab Q4HP PRN PO 03/14/24 09:45 03/15/24 03:43 1 TAB Ondansetron HCl 4 mg Q4HP PRN IV 03/14/24 09:45 Docusate Sodium 100 mg BIDPRN PRN PO 03/14/24 09:45 Acetaminophen 500 mg Q6HP PRN PO 03/14/24 11:00 Ipratropium Holt 0.5 mg Q4HPRN PRN NEB 03/14/24 10:30 03/17/24 15:14 0.5 MG Famotidine 20 mg Q12HR IV 03/14/24 22:00 03/16/24 21:20 20 MG Nitroglycerin 0.4 mg Q5MINP PRN SL 03/14/24 10:30 Morphine Sulfate 2 mg Q30M PRN IV 03/14/24 10:30 03/15/24 15:25 2 MG Ceftriaxone Sodium 50 ml @ 100 mls/hr DAILY@09 IV 03/15/24 09:00 03/19/24 08:59 03/17/24 11:38 100 MLS/HR Doxycycline Hyclate 250 ml @ 125 mls/hr Q12H IV 03/14/24 20:15 03/19/24 20:14 03/17/24 08:49 125 MLS/HR Quetiapine Fumarate 50 mg BID PO 03/15/24 12:45 03/17/24 08:50 50 MG Hydralazine HCl 10 mg Q4HPRN PRN IV 03/16/24 18:00 Prednisone 20 mg BID PO 03/17/24 10:00 03/20/24 09:59 03/17/24 11:37 20 MG objective Gen.: Patient lying in bed in no apparent distress. On supplemental oxygen. Head: Normocephalic, atraumatic. Eyes: EOMI/PERRLA. Ears: Normal hearing. Normal anatomy. Neck/trachea: Trachea midline, supple. Nose: Normal external anatomy. Mouth: Moist mucous membranes. Chest: Decreased air entry bilaterally. No wheezing or rhonchi. Cardiovascular: Positive S1, positive S2. Regular rate and rhythm. Abdomen: Positive bowel sounds in all 4 quadrants. Soft, non-tender, non- distended. : Deferred. Rectal: Deferred. Skin: Warm, dry. Intact. Extremities: 2+ radial pulses bilaterally. No lower extremity edema. Neuro: Awake, alert, oriented x3. No gross motor or sensory deficits. Cranial nerves II through XII intact. Gait not assessed. laboratory and microbiology Laboratory Tests 03/17/24 07:20 Test 03/17/24 07:20 Range/Units Serum Glucose 120 H 74-106 mg/dL Assessment/Plan Impression: Acute hypoxic respiratory failure COPD exacerbation Emphysematous changes Chronic interstitial lung disease Metabolic encephalopathy Generalized weakness Atelectasis Events: Remains on supplemental oxygen On 2 LPM via NC Taper O2 as tolerated Continue steroids - transitioned to prednisone PO. Lungs clear, wheezing resolved. Complete antibiotic course - OK to transition to PO antibiotics. Continue bronchodilators. Incentive spirometry Leukocytosis - likely reactive to steroids. HOB elevation Aspiration precautions. On 1:1 monitoring for safety. Patient is stable for discharge from the pulmonary standpoint. Labs and imaging reviewed Rest of plan as noted below. Plan: ABG compensated. CT chest from 06/2022 report and images reviewed. Severe centrilobular/paraseptal emphysematous changes. Left lower lobe atelectasis/scarring. Supplemental oxygen On 2 LPM via NC Keep O2 saturation above 92%. Continue bronchodilators every 4 hours as needed IV steroids - currently transitioned to prednisone PO. Complete antibiotic course for AE COPD. GI prophylaxis-famotidine every 12 hours. Prognosis: Guarded given multiple comorbidities. Rest of plan per hospitalist and other consultants. Thank you JAE Peoples for allowing me to participate in this patient's care. Further recommendations will depend on patient's clinical course. Please do not hesitate to contact me if you have any questions or concerns. This medical document was created using an electronic medical record system with [employer] dictation system. Although this document has been carefully reviewed, there may still be some phonetic and typographical errors. These areas are purely typographical due to imperfections of the software programs, and do not reflect any compromise in the patient's medical care. Plan discussed with: Patient, Other (RN Summer) LYNETTE LOUIS MD Mar 17, 2024 20:30
== END 2024-03-17 21:38 | disposition home health service (06) | DRG 177 ==
LOC: EDBD 05:52 → ER 05:52 → TELE 10:32 → TELE-WESTW 23:57 → TELE 03-15 00:05 → TELE-WESTW 03-15 18:44
PROVIDERS: ADMIT Nurse Practitioner Family; ATTEND Student in an Organized Health Care Education/Training Program
DX: J15.69 Pneumonia due to other Gram-negative bacteria (principal); G93.41 Metabolic encephalopathy; J96.21 Acute and chronic respiratory failure with hypoxia; J44.1 Chronic obstructive pulmonary disease with (acute) exacerbation; F03.911 Unspecified dementia, unspecified severity, with agitation; J44.0 Chronic obstructive pulmonary disease with (acute) lower respiratory infection; J15.9 Unspecified bacterial pneumonia; E11.9 Type 2 diabetes mellitus without complications; E78.5 Hyperlipidemia, unspecified; Z66 Do not resuscitate; N40.0 Benign prostatic hyperplasia without lower urinary tract symptoms
CPT/HCPCS: 36415; 36600; 71045; 80048; 80053; 82805; 85025; 93005; 94640; 96365; 96372; 96375; 97116; 97163; 97530; 99291; G0378; J3490